=== PATIENT | male | born 1995 | race African-American/Black ===

== ENCOUNTER 2020-08-09 02:15 | Inpatient (IN) | payer BC ==
[~2020-08-09] VITALS: Ht 175.3 cm; Wt 84.4 kg
[2020-08-09 02:26] VITALS: BP 116/73
[2020-08-09 03:39] LABS: ABSOLUTE EOSINOPHILS 0.1 thou/uL (0.0-0.7); ABSOLUTE MONOCYTES 1.3 thou/uL (0.0-1.2); ABSOLUTE NEUTROPHILS 5.6 thou/uL (1.6-8.1); BASOPHILS 0.2 %; EOSINOPHILS 0.8 %; HEMATOCRIT 44.7 % (42.0-52.0); LYMPHOCYTES 22.3 %; MCH 30.2 pg (26.0-34.0); MCHC 33.6 g/dL (28.0-37.0); MONOCYTES 14.1 %; MPV 9.1 fl. (7.2-11.1); NUCLEATED RBCS 0 /100WBC; PLATELET COUNT* 198 thou/uL (150-400); POLYS 62.6 %; RBC 4.97 mil/uL (4.50-6.00); RDW-CV 13.1 % (10.5-14.5)
[2020-08-09 03:46] LABS: CALCIUM 9.9 mg/dL (8.5-10.1); CREATININE 1.9 mg/dL (0.6-1.3); POTASSIUM 4.1 mmol/L (3.5-5.1)
[2020-08-09 03:51] LABS: TOTAL BILIRUBIN 0.5 mg/dL (<0.1-1.0); TOTAL PROTEIN 7.8 g/dL (6.4-8.2)
[2020-08-09 03:53] LABS: PROTIME 10.8 Seconds (9.20-11.50)
[2020-08-09 05:10] LABS: URINE BILIRUBIN NEGATIVE (Negative); URINE BLOOD NEGATIVE (Negative); URINE CLARITY CLEAR; URINE COLOR YELLOW; URINE GLUCOSE-RANDOM NEGATIVE (Negative); URINE KETONES NEGATIVE (Negative); URINE LEUKOCYTES-REFLEX NEGATIVE (Negative); URINE NITRITE-REFLEX NEGATIVE (Negative); URINE PROTEIN 1+ (Negative); URINE SPECIFIC GRAVITY <= 1.005 (1.005-1.030); URINE UROBILINOGEN 0.2 E.U./dl (0.2-1.0)
[2020-08-09 08:00] VITALS: BP 118/58
[2020-08-09 09:00] VITALS: BP 120/72
[2020-08-09 12:02] VITALS: BP 127/78
[2020-08-09 16:38] VITALS: BP 111/65
[2020-08-09 20:00] VITALS: BP 116/59
[2020-08-10] VITALS: BP 110/55
[2020-08-10 04:03] LABS: ALBUMIN 3.3 g/dL (3.4-5.0); CALCIUM 8.5 mg/dL (8.5-10.1); CREATININE 1.8 mg/dL (0.6-1.3); POTASSIUM 3.8 mmol/L (3.5-5.1); TOTAL BILIRUBIN 0.7 mg/dL (<0.1-1.0); TOTAL PROTEIN 6.8 g/dL (6.4-8.2)
[2020-08-10 04:29] LABS: ABSOLUTE EOSINOPHILS 0.1 thou/uL (0.0-0.7); ABSOLUTE MONOCYTES 1.1 thou/uL (0.0-1.2); ABSOLUTE NEUTROPHILS 5.4 thou/uL (1.6-8.1); BASOPHILS 0.4 %; EOSINOPHILS 1.2 %; HEMATOCRIT 41.6 % (42.0-52.0); HEMOGLOBIN 13.7 gm/dL (14.0-18.0); LYMPHOCYTES 23.1 %; MCH 30.2 pg (26.0-34.0); MCV 91.7 fL (80.0-100.0); MONOCYTES 12.3 %; MPV 9.5 fl. (7.2-11.1); NUCLEATED RBCS 0 /100WBC; PLATELET COUNT* 178 thou/uL (150-400); RBC 4.54 mil/uL (4.50-6.00); RDW-CV 12.9 % (10.5-14.5); WBC 8.6 thou/uL (4.0-11.0)
[2020-08-10 08:00] VITALS: BP 118/65
[2020-08-10 20:00] VITALS: BP 123/72; BP 131/48
[2020-08-11 04:00] VITALS: BP 104/55
[2020-08-11 04:20] LABS: ABSOLUTE EOSINOPHILS 0.1 thou/uL (0.0-0.7); ABSOLUTE LYMPHOCYTES 2.2 thou/uL (0.8-5.3); ABSOLUTE MONOCYTES 0.7 thou/uL (0.0-1.2); ABSOLUTE NEUTROPHILS 3.4 thou/uL (1.6-8.1); BASOPHILS 0.2 %; EOSINOPHILS 1.7 %; HEMATOCRIT 37.4 % (42.0-52.0); HEMOGLOBIN 12.7 gm/dL (14.0-18.0); LYMPHOCYTES 34.1 %; MCH 30.2 pg (26.0-34.0); MCHC 33.8 g/dL (28.0-37.0); MCV 89.4 fL (80.0-100.0); MONOCYTES 10.7 %; MPV 8.8 fl. (7.2-11.1); NUCLEATED RBCS 0 /100WBC; PLATELET COUNT* 189 thou/uL (150-400); POLYS 53.3 %; RBC 4.18 mil/uL (4.50-6.00); RDW-CV 12.4 % (10.5-14.5); WBC 6.4 thou/uL (4.0-11.0)
[2020-08-11 04:34] LABS: CALCIUM 7.8 mg/dL (8.5-10.1); CREATININE 1.1 mg/dL (0.6-1.3); POTASSIUM 3.6 mmol/L (3.5-5.1)
[2020-08-11 07:30] VITALS: BP 112/59
--- NOTE | 2020-08-11 09:09 | CON ---
[address] [address] CONSULTATION Name: HAZEL CONNOR II Room: [address] [place] .R.#: [id number] Admission: 08/10/20 Attend Phys: Teressa Escobedo Discharge: Date of : 89 Report #: [id number] THIS REPORT FOR: //name// cc: Saige Guzman MD, Ellen S. MD ~ DATE OF SERVICE: 08/10/2020 REQUESTING PHYSICIAN: Dr. Smith REASON FOR CONSULTATION: Abnormal renal function, proteinuria. HISTORY OF PRESENT ILLNESS: The patient is a very pleasant 25-year-old male with no past medical history, presents with complaints of abdominal pain. He was found to have some presence of stool in his colon. He also had creatinine of 1.0 and there is no history of medical problems. Urine revealed 1+ proteinuria, so I was consulted to assess his renal function and proteinuria. PAST MEDICAL HISTORY: None. SOCIAL HISTORY: No tobacco, no alcohol abuse. He works in banking system. FAMILY HISTORY: Negative for hypertension, diabetes. ADDITIONAL MEDICAL HISTORY: He was positive for COVID on 07/24/2020, then he was tested negative. PHYSICAL EXAMINATION: Physical exam was not done due to potential COVID infection. ASSESSMENT: 1. History of recent COVID infection. 2. Abdominal discomfort. 3. Proteinuria. 4. Abnormal renal function. PLAN: Obtain serologies, but it is possible that this is a reaction to COVID infection. We will be on the safe side and check his serologies to make sure he does not have any vasculitis. His blood pressure is well controlled. He probably can go home after blood specimen collected and follow up with us in 2 weeks. Discussed with the patient's mother and the patient's nurse. <ELECTRONICALLY SIGNED> By: Steven Person MD 08/11/20 0909 [id number] Person MD /nt
[2020-08-11 10:40] LABS: CALCIUM 8.1 mg/dL (8.5-10.1); CREATININE 1.1 mg/dL (0.6-1.3); POTASSIUM 3.8 mmol/L (3.5-5.1)
[2020-08-11 16:00] VITALS: BP 132/71
[2020-08-11 18:47] VITALS: BP 132/71
[2020-08-11 19:57] VITALS: BP 132/71
[2020-08-12 10:07] LABS: HEPATITIS B SURFACE AG Negative (Negative)
== END 2020-08-11 20:00 | disposition home or self-care (01) | DRG 392 ==
LOC: M.ERS 02:15 → M.TBA-ER 05:24 → M.2W 09:06 → M.3W 08-10 18:26
PROVIDERS: Emergency Medicine; Internal Medicine; Internal Medicine Nephrology; ADMIT Internal Medicine; ATTEND Internal Medicine
DX: K59.00 Constipation, unspecified (principal); N17.9 Acute kidney failure, unspecified; N18.9 Chronic kidney disease, unspecified; Z20.828 Contact with and (suspected) exposure to other viral communicable diseases; Z79.899 Other long term (current) drug therapy